=== PATIENT | female | born 1980 | race African-American/Black ===

== ENCOUNTER 2018-08-22 12:32 | Emergency (ER) | payer MEDICAID ==
[~2018-08-22] VITALS: Ht 172.7 cm; Wt 123.0 kg
[2018-08-22] MEDS: FLUORESCEIN SODIUM 1MG/STRIP OP ONE ×2 (15:59→16:03)
[2018-08-22] MEDS: TETRACAINE 0.5% OPHTH DROPS 4ML OP ONE ×2 (15:59→16:04)
[2018-08-22 16:25] VITALS: BP 138/79
== END 2018-08-22 16:28 | disposition home or self-care (01) ==
LOC: ER 12:32
DX: H02.845 Edema of left lower eyelid (principal)
CPT/HCPCS: 99283